=== PATIENT | male | born 1975 | race African-American/Black ===

== ENCOUNTER 2016-12-21 07:09 | Emergency (ER) | payer OTHER ==
--- NOTE | ~2016-12-21 | EKG ---
PATIENT: STEVEN CAMPBELLLIUS UNIT #: [id number] Ventricular Rate: 53 BPM Atrial Rate: 53 BPM P-R Interval: 142 ms QRS Duration: 84 ms Q-T Interval: 430 ms QTC Calculation(Bezet): 403 ms P Spencer: 61 degrees Calculated R Spencer: 34 degrees Calculated T Spencer: -60 degrees Diagnosis Line: Sinus bradycardia Diagnosis Line: Possible Left atrial enlargement Diagnosis Line: Left ventricular hypertrophy Diagnosis Line: T wave abnormality, consider inferior ischemia Diagnosis Line: Abnormal ECG Diagnosis Line: When compared with ECG of 07-JUN-2016 11:13, Diagnosis Line: Sinus rhythm has replaced Ectopic atrial rhythm Diagnosis Line: Nonspecific T wave abnormality has replaced Diagnosis Line: inverted T waves in Anterior leads Diagnosis Line: Confirmed by BOBBY NESBITT MD ([id number]) on Diagnosis Line: 12/21/2016 11:09:46 AM INTERPRETING MD: [email or web address]
[~2016-12-21 07:09] MED LIST: DEPRIZINE15 MG/1 ML PO; ULTRAM PO
[2016-12-21 07:54] LABS: BASOPHIL% 0.3 % (0-2.5); HEMATOCRIT 47.7 % (38.0-50.0); HEMOGLOBIN 15.7 gm/dL (13.0-16.0); LYMPHOCYTE# 1.3 X10e3 (1.0-3.5); LYMPHOCYTE% 10.4 % (17.0-45.0); MEAN CELL VOLUME 90.3 FL (83-96); MEAN CORPUSCULAR HEMOGLOBIN 29.7 PG (28-34); MEAN CORPUSCULAR HGB CONC 32.9 g/dL (30-36); MEAN PLATELET VOLUME 7.7 FL (6.5-11.5); MONOCYTE# 0.3 X10e3 (0-1.0); MONOCYTE% 2.6 % (3.0-12.0); NEUTROPHIL# 10.8 X10e3 (1.5-7.1); NEUTROPHIL% 86.7 % (40-75); PLATELET COUNT 343 X10e3 (140-420); RED BLOOD COUNT 5.28 X10e (3.90-5.60); RED CELL DISTRIBUTION WIDTH 12.8 % (11.0-15.5); WHITE BLOOD COUNT 12.5 X10e3 (4.0-10.5)
[2016-12-21 07:59] LABS: DIFF IND NO
[2016-12-21 08:19] LABS: BILIRUBIN, DIRECT 0.1 mg/dL (0.0-0.2); BILIRUBIN,INDIRECT 0.4 mg/dL (0.0-0.9); BILIRUBIN,TOTAL 0.5 mg/dL (0.2-2.0); CALCIUM SERUM 10.1 mg/dL (8.4-10.2); GLOM FILT RATE Estimated 107.1 mL/min (>60); POTASSIUM 3.5 mmol/L (3.5-5.1); PROTEIN TOTAL SERUM 8.9 g/dL (6.0-8.3)
[2016-12-21 08:35] LABS: POC - CKMB 1.3 ng/mL (0.0-7.9); POC - TROPONIN <0.05 ng/mL (<=0.05)
[2016-12-21 09:31] LABS: URINE SOURCE CLEAN CATCH
[2016-12-21 09:36] LABS: URINE APPEARANCE CLEAR; URINE BILIRUBIN NEG (NEG); URINE BLOOD TRACE (NEG); URINE COLOR YELLOW; URINE GLUCOSE 100 MG/DL (NEG); URINE KETONE TRACE (NEG); URINE LEUKOCYTE ESTERASE NEG (NEG); URINE NITRATE NEG (NEG); URINE PH 6.5 (5-8); URINE PROTEIN 2+ (NEG); URINE SPECIFIC GRAVITY 1.028 (1.003-1.035); URINE UROBILINOGEN 0.2 MG/DL (NEG)
[2016-12-21 09:38] LABS: URINE BACTERIA AUWI NEG (NEGATIVE); URINE SQUAMOUS EPITHELIAL CELL OCC /[HPF]
[2016-12-21 09:52] LABS: CULTURE INDICATED? NO; URINE MUCUS PRESENT
== END 2016-12-21 10:58 | disposition home or self-care (01) ==
LOC: CED 07:09
PROVIDERS: Nurse Practitioner
DX: R10.84 Generalized abdominal pain (principal); R11.2 Nausea with vomiting, unspecified; R19.7 Diarrhea, unspecified; I10 Essential (primary) hypertension; R73.9 Hyperglycemia, unspecified; M54.9 Dorsalgia, unspecified; R42 Dizziness and giddiness; K21.9 Gastro-esophageal reflux disease without esophagitis; N28.81 Hypertrophy of kidney; Z98.890 Other specified postprocedural states
CPT/HCPCS: 36415; 80048; 80076; 81003; 82150; 82553; 83690; 84484; 85025; 93005; 96361; 96374; 96375; 99284; J2270; J2405; J2550